=== PATIENT | male | born 1970 | race American Indian/Alaskan Native ===

== ENCOUNTER 2017-05-06 09:46 | Emergency (ER) | payer BC ==
[2017-05-06] MEDS ORDERED: FLEXERIL PO ONE (13:46)
[2017-05-06] MEDS ORDERED: NORCO 5/325 PO ONE (13:46)
--- NOTE | 2017-05-06 14:18 | XRay Report ---
LUMBOSACRAL SPINE, 3 VIEWS: History: Back pain Findings: The vertebral bodies, disk spaces and posterior elements are intact. No compression deformity or malalignment. Mild degenerative disc disease and facet arthropathy are identified at all levels. The SI joints are symmetric and unremarkable. Impression: Lumbar spondylosis. No evidence for acute injury to the lumbar spine.
--- NOTE | 2017-05-06 14:19 | XRay Report ---
CERVICAL SPINE, 3 views: History: Neck pain. Findings: The vertebral bodies, disk spaces, posterior elements and prevertebral soft tissues are intact. There is minimal disc space narrowing at C5-6. The remaining levels are within normal limits. The dens is intact. No acute fracture or malalignment is identified. Impression: Early degenerative disc disease at C5-6. No evidence for acute injury to the cervical spine.
[2017-05-06 15:00] VITALS: BP 128/78
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
== END 2017-05-06 14:59 | disposition home or self-care (01) ==
LOC: ED 09:46
DX: M54.5 Low back pain (principal); V49.49XA Driver injured in collision with other motor vehicles in traffic accident, initial encounter; Y93.89 Activity, other specified; Y92.89 Other specified places as the place of occurrence of the external cause; Y99.8 Other external cause status
CPT/HCPCS: 72040; 72100

== ENCOUNTER 2018-05-14 15:06 | Emergency (ER) | payer OTHER, BC ==
[2018-05-14] MEDS ORDERED: IBUPROFEN PO ONE (15:58)
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
[2018-05-15 14:16] VITALS: BP 127/86
== END 2018-05-14 18:02 | disposition home or self-care (01) ==
LOC: ED 15:06
DX: S16.1XXA Strain of muscle, fascia and tendon at neck level, initial encounter (principal); M54.5 Low back pain; V49.49XA Driver injured in collision with other motor vehicles in traffic accident, initial encounter; Y93.89 Activity, other specified; Y92.410 Unspecified street and highway as the place of occurrence of the external cause; Y99.8 Other external cause status
CPT/HCPCS: 72040